=== PATIENT | female | born 1970 | race American Indian/Alaskan Native ===

== ENCOUNTER 2019-03-12 00:31 | Emergency (ER) | payer SELFPAY ==
--- NOTE | 2019-03-12 03:02 | Emergency Department Report ---
ED Headache HPI - General Chief Complaint: High BP Stated Complaint: POSS HIGH BP W/ HEADACHE Time Seen by Provider: 03/12/19 02:45 Source: patient Exam Limitations: no limitations - History of Present Illness Initial Comments: Mrs. Urena is a very pleasant 48 yo female who presents with headache and elevated blood pressure. She has hx of HTN and frequent headaches. She has been without BP medication for one year. She recently moved back to [place] from [place]. She does not have health insurance or a primary care provider. Headache is typical for her. She has right temporal sharp headache with frontal dull pain. No vomiting. No neck pain. No photophobia. She took Tylenol for headache relief today with mild relief. Timing/Duration: 1 week Quality: mild, moderate Head Injury Location: frontal, temporal Recent Head Trauma: frequent headaches Associated Symptoms: denies symptoms Allergies/Adverse Reactions: Allergies No Known Allergies Allergy (Verified 03/12/19 00:49) Home Medications: Ambulatory Orders Lisinopril [Zestril TAB] 20 mg PO QDAY 90 Days #90 tablet 03/12/19 hydroCHLOROthiazide [HCTZ] 25 mg PO QDAY 90 Days #90 tablet 03/12/19 ED Review of Systems ROS: Stated complaint: POSS HIGH BP W/ HEADACHE Other details as noted in HPI Comment: All other systems reviewed and negative Constitutional: denies: fever, malaise Neurological: headache. denies: numbness, paresthesias, confusion, abnormal gait, vertigo ED Past Medical Hx - Past Medical History Previous Medical History?: Yes Hx Hypertension: Yes - Surgical History Past Surgical History?: No - Family History Family history: hypertension - Social History Smoking Status: Never Smoker Substance Use Type: None - Medications Home Medications: Home Medications Medication Instructions Recorded Confirmed Last Taken Type Lisinopril [Zestril TAB] 20 mg PO QDAY 90 Days #90 tablet 03/12/19 Unknown Rx hydroCHLOROthiazide [HCTZ] 25 mg PO QDAY 90 Days #90 tablet 03/12/19 Unknown Rx ED Physical Exam - General Limitations: No Limitations General appearance: alert, in no apparent distress, other (pleasant, articulate, appears comfortable) - Head Head exam: Present: atraumatic, normocephalic - Eye Eye exam: Present: normal appearance - ENT ENT exam: Present: mucous membranes moist - Neck Neck exam: Present: normal inspection - Respiratory Respiratory exam: Present: normal lung sounds bilaterally. Absent: respiratory distress, wheezes, rales, rhonchi - Cardiovascular Cardiovascular Exam: Present: regular rate, normal rhythm, normal heart sounds. Absent: systolic murmur, diastolic murmur, rubs, gallop - GI/Abdominal GI/Abdominal exam: Present: soft, normal bowel sounds. Absent: distended, tenderness, guarding - Extremities Exam Extremities exam: Present: normal inspection - Back Exam Back exam: Present: normal inspection - Neurological Exam Neurological exam: Present: alert, oriented X3 - Psychiatric Psychiatric exam: Present: normal affect, normal mood - Skin Skin exam: Present: warm, dry, intact, normal color. Absent: rash ED Course Vital Signs 03/12/19 03/12/19 03/12/19 00:37 00:51 01:52 Temperature 98.2 F Pulse Rate 102 H 93 H Respiratory 18 Rate Blood Pressure 236/132 236/126 Blood Pressure 233/130 [Left] ED Medical Decision Making - Medical Decision Making Tension ORDONEZ typical for patient, treated with Ibuprofen in the ED Hypertensive Urgency, after PO labetalol repeat BP reading 183/108 given referral to outpatient clinic rx: 90 day prescription for lisinopril/HCTZ Critical care attestation.: If time is entered above; I have spent that time in minutes in the direct care of this critically ill patient, excluding procedure time. ED Disposition Clinical Impression: Tension headache, Hypertensive urgency Disposition: [id number] TO HOME OR SELFCARE Is pt being admited?: No Does the pt Need Aspirin: No Condition: Stable Instructions: Hypertension (ED) Prescriptions: hydroCHLOROthiazide [HCTZ] 25 mg PO QDAY 90 Days #90 tablet Lisinopril [Zestril TAB] 20 mg PO QDAY 90 Days #90 tablet Referrals: [facility] [Outside] - 3-5 Days
[2019-03-12] MEDS ORDERED: IBUPROFEN 800 MG TAB PO ONE (03:03)
[2019-03-12 03:23] VITALS: BP 183/108
== END 2019-03-12 03:25 | disposition home or self-care (01) ==
LOC: ED 00:31
DX: G44.209 Tension-type headache, unspecified, not intractable (principal); I16.0 Hypertensive urgency; I10 Essential (primary) hypertension; Z79.899 Other long term (current) drug therapy